=== PATIENT | male | born 1975 | race African-American/Black ===

== ENCOUNTER 2024-12-01 11:36 | Emergency (ER) | payer OTHER ==
[2024-12-01] VITALS (11 sets, daily range): BP systolic 104–125; BP diastolic 63–79
[~2024-12-01] VITALS: Ht 182.9 cm; Wt 93.0 kg
[2024-12-01 12:39] LABS: BASO% 0.2 % (0-3); HEMATOCRIT 47.6 % (39.0-50.0); HEMOGLOBIN 14.9 g/dl (14.0-18.0); IMMATURE GRANULOCYTES 0.2 % (0.0-5.0); LYMPH% 4.2 % (15-41); MEAN CELL VOLUME 86.1 fL CALC (80.0-100.0); MEAN CORPUSCULAR HGB 26.9 pG CALC (26.0-32.0); MEAN CORPUSCULAR HGB CONC 31.3 g/dL CAL (32.0-36.0); MONO% 4.5 % (2-13); NEUT# 9.55 thou/uL (1.82-7.42); NEUT% 90.9 % (42-76); RED BLOOD COUNT 5.53 mill/uL (4.70-6.10); RED CELL DISTRI WIDTH 12.3 % (11.5-15.5)
[2024-12-01 12:46] LABS: ALBUMIN 4.1 g/dL (3.2-5.0); BILIRUBIN, TOTAL 0.5 mg/dL (0.2-1.3); CREATININE 1.5 mg/dL (0.7-1.3); POTASSIUM 3.3 mmol/l (3.5-5.1); TOTAL PROTEIN 7.1 g/dL (6.3-8.2)
[2024-12-01] MEDS ORDERED: SODIUM CHLORIDE 0.9% 1,000 ML IV ONE (13:15)
[2024-12-01] MEDS ORDERED: POTASSIUM CHLORIDE 20 MEQ/TAB PO ONE (13:20)
[2024-12-01 13:31] LABS: URINE BILIRUBIN - DIPSTICK Negative (NEGATIVE); URINE BLOOD DIPSTICK Negative (NEGATIVE); URINE GLUCOSE - DIPSTICK Negative (NEGATIVE); URINE KETONE Negative (NEGATIVE); URINE LEUK ESTERASE Negative (NEGATIVE); URINE NITRITE - DIPSTICK Negative (Negative); URINE PROTEIN - DIPSTICK Negative (NEG-TRACE); URINE SPECIFIC GRAVITY 1.025; URINE UROBILINOGEN - DIPSTICK 0.2 E.U./dL (0.2)
[2024-12-01 13:32] LABS: URINE COLOR Yellow
== END 2024-12-01 15:11 | disposition home or self-care (01) | DRG 641 ==
LOC: ED 11:36
PROVIDERS: Emergency Medicine
DX: E86.0 Dehydration (principal)